=== PATIENT | male | born 1980 | race Caucasian/White ===

== ENCOUNTER 2023-08-21 11:39 | Emergency (ER) | payer SELFPAY ==
[2023-08-21 12:06] VITALS: BP 128/74; PULSE 74; RESP 18; TEMP 97.9; BMI 21.4
[2023-08-21] MEDS ORDERED: SODIUM CHLORIDE 1,000 ML IV STA (13:16)
[2023-08-21] MEDS ORDERED: ACETAMINOPHEN 1000 MG/100 ML BAG IVPB ONE (13:17)
[2023-08-21] MEDS ORDERED: ACETAMINOPHEN INJECTION 100 ML IVPB ONE (13:33)
[2023-08-21 13:49] LABS: BASO % 0.7 % (0-2.0); EOS % 0.2 % (0-4.5); HEMATOCRIT 43.7 % (35.4-49); HEMOGLOBIN 14.8 GM/dL (11.7-16.9); LYMPH % 22.1 % (8-40); MCH 30.6 pg (25.7-33.7); MCHC 33.8 g/dl (32.0-35.9); MEAN CELL VOLUME 90.4 fl (80-96); MEAN PLT VOLUME 8.1 fl (7.5-11.1); MONO % 5.4 % (3.8-10.2); NEUT % 71.6 % (42.8-82.8); PLATELET COUNT 247 10^3/uL (134-434); RBC 4.83 M/mm3 (4.00-5.60); RDW 13.6 % (11.9-15.9); WHITE BLOOD COUNT 5.1 K/mm3 (4.0-10.0)
[2023-08-21 14:09] LABS: POTASSIUM 3.7 mmol/L (3.5-5.1)
[2023-08-21 14:12] LABS: CALCIUM 9.3 mg/dL (8.5-10.1)
[2023-08-21 14:13] LABS: ALBUMIN 4.4 g/dl (3.4-5.0); BLOOD UREA NITROGEN 12.4 mg/dL (7-18); MAGNESIUM 2.5 mg/dL (1.8-2.4)
[2023-08-21 14:16] LABS: CREATININE 0.8 mg/dL (0.55-1.3)
[2023-08-21 14:17] LABS: BILIRUBIN,TOTAL 0.7 mg/dL (0.2-1); TOT PROT 7.8 g/dl (6.4-8.2)
== END 2023-08-21 16:14 | disposition home or self-care (01) ==
LOC: JER 11:39
PROC: 3E033NZ Introduction of Analgesics, Hypnotics, Sedatives into Peripheral Vein, Percutaneous Approach (ICD-10-PCS; principal; 2023-08-21)
PROC: 3E0337Z Introduction of Electrolytic and Water Balance Substance into Peripheral Vein, Percutaneous Approach (ICD-10-PCS; 2023-08-21)
DX: R07.89 Other chest pain (principal); J18.9 Pneumonia, unspecified organism; Z20.822 Contact with and (suspected) exposure to COVID-19
CPT/HCPCS: 0241U-QW; 36415; 71046-TC-FY; 80053; 83735; 84484; 85025; 93005; 93010; 99285-25